=== PATIENT | female | born 2000 | race Caucasian/White ===

== ENCOUNTER 2021-04-16 09:47 | Emergency (ER) | payer OTHER, SELFPAY ==
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
[2021-04-16 10:06] VITALS: BP 148/79; BP 170/96; PULSE 90; PULSE 98; RESP 16; TEMP 36.8; O2SAT 98; BMI 31.7
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
[2021-04-16] MEDS: Acetaminophen 325 MG TABLET 650 MG PO (10:52)
[2021-04-16] MEDS: Ondansetron ODT 4 MG TAB.RAPDIS TRANSLINGU (10:52)
[2021-04-16 11:57] VITALS: BP 145/73; PULSE 82; RESP 16; TEMP 36.7; O2SAT 97
== END 2021-04-16 12:24 | disposition home or self-care (01) ==
PROVIDERS: Emergency Provider Emergency Medicine
DX: S09.90XA Unspecified injury of head, initial encounter (principal); V43.53XA Car driver injured in collision with pick-up truck in traffic accident, initial encounter; M54.50 Low back pain, unspecified; Y93.89 Activity, other specified; Y92.414 Local residential or business street as the place of occurrence of the external cause; Y99.9 Unspecified external cause status
CPT/HCPCS: 70450; 72125; 99284